=== PATIENT | female | born 1940 | race Caucasian/White ===

== ENCOUNTER 2024-05-06 23:44 | Observation (INO) | payer MEDICARE, OTHER, SELFPAY ==
[2024-05-06 21:14] VITALS: BP 160/59
[2024-05-06 21:17] VITALS: BP 160/59
[2024-05-06 21:30] LABS: % Basophils 0.8 % (0-2); % Immature Granulocytes 0.4 % (0-0.5); % Monocytes 7.5 % (1.7-9.3); % Neutrophils 72.3 % (42.2-75.2); Absolute Basophils 0.1 10^3/uL (0-0.2); Absolute Eosinophils 0.3 10^3/uL (0-0.7); Absolute Lymphocytes 1.1 10^3/uL (1.2-3.4); Absolute Monocytes 0.5 10^3/uL (0.1-0.6); Absolute Neutrophils 5.1 10^3/uL (1.4-6.5); Hematocrit 26.3 % (37.0-47.0); Hemoglobin 8.6 g/dL (12.0-16.0); Mean Corp Hgb Conc. 32.7 g/dL (33.0-37.0); Mean Corpuscular Hgb 31.7 pg (27.0-31.0); Mean Platelet Volume 9.6 fL (7.4-10.4); Nucleated Red Blood Cells % 0 %; Platelet Count 281 10^3/uL (130-400); Red Blood Cell Count 2.71 10^6/uL (4.20-5.40); Red Cell Dist. Width 13.6 % (11.5-14.5); White Blood Cell Count 7.1 10^3/uL (4.8-10.8)
[2024-05-06 21:32] LABS: Urine Albumin Negative (Neg - Trace); Urine Bilirubin Negative (Negative); Urine Character Slightly Cloudy (Clear); Urine Color Yellow; Urine Glucose Negative (Negative); Urine Ketone Negative (Negative); Urine Leukocyte 2+ (Negative); Urine Nitrite Positive (Negative); Urine Occult Blood Negative (Negative); Urine Specific Gravity 1.005 (<1.030); Urine Urobilinogen Negative (Neg - 1+)
[2024-05-06 21:49] LABS: ALT (SGPT) 20 U/L (0-35); AST (SGOT) 28 U/L (14-36); Albumin 3.5 g/dl (3.5-5.0); Alkaline Phosphatase 105 U/L (38-126); Blood Urea Nitrogen 22 mg/dl (7-17); Calcium 9.3 mg/dl (8.4-10.2); Carbon Dioxide 23 mmol/L (22-30); Chloride 100 mmol/L (98-107); Glucose 99 mg/dl (70-99); Potassium 3.9 mmol/L (3.5-5.1); Sodium 131 mmol/L (135-145); Total Bilirubin 0.6 mg/dl (0.2-1.3); Total Protein 5.7 g/dl (6.3-8.2); eGFR 50.48
[2024-05-06 21:54] LABS: Urine Bacteria Many (Negative); Urine White Cell 30-40 /HPF (0-5)
[2024-05-06 22:00] VITALS: BP 164/57
[2024-05-06] MEDS: ZOSYN 50 IV (22:24)
[2024-05-06 22:30] LABS: Iron 69 ug/dl (37-170)
--- NOTE | 2024-05-06 22:31 | ED.GENMED ---
History of Present Illness
General
Chief Complaint: Fatigue
Source: patient and family
Exam Limitations: none
Time Seen by Provider: 05/06/24 22:02
Nursing documentation reviewed up to this point in time: agreed with
History of Present Illness
History of Present Illness:
Patient presents to ED secondary to ongoing fatigue and weakness over the past 1 month, despite hospitalization at [facility], during which time she was treated for anemia as well as urinary tract infection. Denies fever or chills.
Denies nausea, vomiting, or diarrhea. Denies coughing. Patient reports decreased appetite and generalized weakness. Denies rash. Denies headache. Denies change in behavior, per family. Patient was told during the hospitalization that her
anemia needs further workup as an outpatient. In the meantime, iron supplement was recommended.
Past History
Past History
ED Past Medical History: None
ED Past Surgical History: None
Review of Systems
Review of Systems
Allergies reviewed?: Yes
All Other Systems: ROS reviewed and negative except as documented in HPI and ROS
Constitutional: Reports no symptoms; Denies fever or chills
Respiratory: Reports no symptoms; Denies cough
Cardiac: Reports no symptoms; Denies chest pain
ABD/GI: Reports no symptoms; Denies abdominal pain, vomiting or diarrhea
: Reports no symptoms
Musculoskeletal: Reports no symptoms
Skin: Reports no symptoms
Neurological: Reports weakness
Phy Exam
Physical Exam
Physical Exam:
Physical Exam
General: mild distress, not acutely ill. weak appearing. afebrile
Head: nc/at. eomi
Neck: supple. normal range of motion.
Heart: s1/s2 regular rate and rhythm, no murmur. equal radial pulses.
Lungs: no acute respiratory distress. clear bilaterally
Abdomen: normal bowel sounds. not tender.
Neuro: alert and oriented. no focal neurological deficits
Skin: no rash
Psychiatric: well kept. interactive and cooperative
Extremities: no edema. no calf tenderness.
Course
Orders/Labs/Results
Orders:
Orders
05/06/24 21:16
Complete Blood Count/With Diff Urgent
Comprehensive Metabolic Panel Urgent
Ferritin Urgent
Comment: ADD ON
Iron Urgent
Comment: ADD ON
Magnesium Urgent
Comment: ADD ON
TSH Reflex To Free T4 Urgent
Comment: ADD ON
Total Iron Binding Urgent
Comment: ADD ON
Urinalysis Reflex To Culture Urgent
Date Specimen was Collected: 05/06/24
Time Specimen was Collected: 21:15
Urine Microscopic Reflex Cult Urgent
Urine Culture Urgent
NIRU Source: U
Specimen Description:
Date Specimen was Collected: 05/06/24
Time Specimen was Collected: 21:15
05/06/24 22:14
Add On- LAB Urgent
Tests Added?: magnesium, TSH to reflex free T4, iron, TIBC, Ferritin
05/06/24 22:16
Piperacillin/Tazo 3.375 Gram [Zosyn] 3.375 gram in 50 ml IV NOW
05/06/24 22:24
Lactic Acid Q4H
Comment: CANCEL 2nd LACTIC ACID IF 1st LACTIC ACID IS LESS THAN 2
Blood Culture Q30M
NIRU Source: Blood/Venous
Specimen Description:
Blood Culture Q30M
NIRU Source: Blood/Venous
Specimen Description:
05/06/24 22:40
0.9% Sodium Chloride 500 ml [Nss] 500 ml IV BOLUS
05/06/24 23:25
Admit/Transfer Patient As Directed
Co-Sign Provider:
Level of Care: Observation services
Assign to:: Medical/Surgical
Physician / Group: hospitalist
Diagnosis: anemia
Code Status As Directed
Resuscitation Status: Full Code
PRN Pain Medication Management As Directed
May give lesser potent ordered pain med per pt: Yes
preference::
Protocol:: Medication orders for pain may be administered in a
manner that supports deferring to patient preference
when the pt is:
- Requesting an ordered lesser potent pain medication.
Least to most potent pain medications are defined
as: acetaminophen < NSAID < tramadol < opioids
(morphine, oxycodone, hydromorphone).
- Requesting a lesser dose of the same medication IF
ORDERED.
- Requesting a less intrusive route of administration
if both routes are prescribed by the provider (PO <
IV).
05/07/24 00:59
Acetaminophen [Tylenol] 650 mg PO Q4HPRN PRN
Bisacodyl [Dulcolax] 10 mg RECTAL [id number] PRN
Docusate W/Senna [Senokot-S] 1 tablet PO BIDPRN PRN
HydrALAZINE [Apresoline] 50 mg PO Q6H
Polyethylene Glycol Powder [Miralax] 17 grams PO DAILYPRN PRN
05/07/24 00:59
Consult Notification Routine
Specialty to Notify: Oncology
ONCOLOGY CONSULT Routine
Consulting Provider: Ricardo Green
Was physician already notified: No
Reason for consult: symptomatic anemia
Activity As Directed
Activity Level: With Assistance
Vital Signs As Directed
Frequency: Per unit guidelines
DX Deep Vein Thrombosis Video Routine
05/07/24 04:00
CeFAZolin 1 GRAM [Ancef] 1 gram in 5 ml IV Q8H
05/07/24 Breakfast
Regular
At Your Request: Full Participation
Basic Metabolic Panel IN AM
Complete Blood Count/No Diff IN AM
Folate IN AM
Haptoglobin [S] IN AM
LDH IN AM
Methemoglobin IN AM
Reticulocyte Count IN AM
Total Bilirubin IN AM
Vitamin B12 IN AM
Levothyroxine [Synthroid] 50 mcg PO DAILY @ 0600
05/07/24 08:00
Dapsone 25 mg PO DAILY
Irbesartan [Avapro] 300 mg PO DAILY
05/07/24 18:00
Enoxaparin Sodium [Lovenox] 40 mg SC QPM
Abnormal Lab Results
05/06/24 05/06/24
21:16 22:24
RBC 2.71 L 10^6/uL
(4.20-5.40)
Hgb 8.6 L g/dL
(12.0-16.0)
Hct 26.3 L %
(37.0-47.0)
MCH 31.7 H pg
(27.0-31.0)
MCHC 32.7 L g/dL
(33.0-37.0)
Absolute Lymphs (auto) 1.1 L 10^3/uL
(1.2-3.4)
Lymphocytes % 15.0 L %
(20.5-51.1)
Sodium 131 L mmol/L
(135-145)
BUN 22 H mg/dl
(7-17)
Creatinine 1.1 H mg/dL
(0.6-1.0)
Lactic Acid 0.5 L mmol/L
(0.7-2.0)
TIBC 239 L ug/dl
(265-497)
Total Protein 5.7 L g/dl
(6.3-8.2)
Urine Nitrite (Reflex) Positive A
(Negative)
Leukocyte Esterase Rfl 2+ A
(Negative)
Urine RBC 7-10 A /HPF
(0-2)
Urine WBC (Reflex) 30-40 A /HPF
(0-5)
Urine Bacteria (Reflex) Many A
(Negative)
05/06/24 21:16
05/06/24 21:16
Vital Signs
Initial and Last Documented VS:
Initial Vital Signs
Temp Pulse Resp BP
98.9 F 76 16 160/59
05/06/24 21:14 05/06/24 21:14 05/06/24 21:14 05/06/24 21:14
Last Documented Vital Signs
Temp Pulse Resp BP Pulse Ox
98.4 F 70 16 156/61 97
05/07/24 01:38 05/07/24 01:38 05/07/24 01:38 05/07/24 01:38 05/07/24 01:38
MDM/Problems Addressed
MDM/Problems Addressed:
History and exam, along with blood work and urinalysis, concerning for UTI, likely complicated versus incompletely treated, as she was recently admitted at another hospital. In addition, ongoing anemia noted, without any evidence of acute bleeding.
As such, patient will be admitted for IV antibiotics.
Urine culture and blood culture pending.
*Critical Care Note
Total Time (30-74mins, 75-104mins- exclusive of procedures): Not Applicable
ED Attending Note
-
Portions of this chart may have been created with voice recognition software.� Occasional wrong word or��sound alike� substitutions may have occurred due to the inherent limitations of voice recognition software.
Discharge Plan
Departure
Patient Disposition: Admit
Date of Disposition: 05/06/24
Time of Disposition: 22:40
Presentation/result/management discussed w/ accepting MD/DO: Hospitalist
Discharge Problem:
Acute UTI, Anemia
Interventions
Interventions:
*Risk Screen - Suicide Last Done: 05/06/24 21:14
*General Assessment Last Done: 05/06/24 21:14
*Neglect/Abuse Screening Last Done: 05/06/24 21:14
ED- Fall Risk Assessment Last Done: 05/07/24 00:55
*ED COVID-19 Vaccine History Last Done: 05/07/24 01:17
*Nursing Disposition Last Done: 05/07/24 00:55
Discharge Date and Time
Discharge Date/Time: 05/07/24 00:55
[2024-05-06 22:38] LABS: Percent Saturation 28 % (20-50); Total Iron Binding Capacity 239 ug/dl (265-497)
[2024-05-06] MEDS: NSS 500 IV (22:42)
[2024-05-06 22:48] LABS: Lactic Acid 0.5 mmol/L (0.7-2.0)
[2024-05-06 23:00] VITALS: BP 161/61
--- NOTE | 2024-05-06 23:10 | HPS.HSE ---
Family Physician
-
Family Physician: Damián Young
Chief Complaint
-
Fatigue
History of Present Illness
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
listlessness.
Patient reported that she had been feeling this way for several weeks now. She was seen at outside hospital about 3 weeks ago for the same symptoms. At the time she was diagnosed with urinary tract infection and was hospitalized for 3 days. After
3 days and completion of antibiotics patient denies any changes in her symptoms. She never had urinary symptoms including dysuria hematuria frequency incontinence or flank pain. She had no fevers or chills. Patient reported that she has been
anemic now for several weeks. It was first detected about 4 months ago. Last hemoglobin prior to today was 9 and before that it was normal. Patient denies having any melena or, denies hematochezia. She denies shortness of breath dyspnea on
exertion or exertional chest pain. She denies lightheadedness or dizziness. Patient reports sleeping well at night but still feeling tired and weak during the daytime. She denies any weight loss. She denies symptoms of depression.
She also has a history of resistant hypertension on previously on spironolactone that was discontinued due to hyponatremia and previously on beta-julio that was discontinued due to her anemia. She denies any history of jaundice.
In the emergency department she was hypertensive with a pressure of 164/60, pulse was 72 she was afebrile and satting at 4% on room air. UA was equivocal with positive nitrites and leukocyte esterase as well as bacteria with lots of squamous
cells. CBC notable for hemoglobin of 8.6 with elevated MCV but otherwise unremarkable. Electrolytes sodium of 131, and BUN/creatinine of 22 and 1.1 respectively. Iron panel shows a normal iron saturation and iron level. Ferritin is pending. TSH
was within normal limits.
Medical History
Past Medical History
Past Medical History: Reports HTN
Additional Past Medical History:
Hyperparathyroid status post hyperparathyroid ectomy
CKD
Past Surgical History: Reports Appendectomy
Additional Past Surgical History:
Breast lumpectomy
Parathyroidectomy
Partial hysterectomy
Social History
Tobacco: Non-smoker
Alcohol: None
Drug: None
Personal:
Living: With Family
Employment: Not Employed
Family History
Family History: Not pertinent
Allergies / Home Medications
Allergies reflects when Allergies were last updated in [employer].
Home Medications with original date entered in [employer]
Allergy/Medication List:
Allergies
Allergy/AdvReac Type Severity Reaction Status Date / Time
Beta-Blockers Allergy Unknown Verified 06/19/19 12:21
(Beta-Adrenergic Bloc
ciprofloxacin [From Cipro] Allergy Unknown Verified 06/19/19 12:21
fluconazole [From Diflucan] Allergy Unknown Verified 06/19/19 12:21
levofloxacin [From Levaquin] Allergy Unknown Verified 06/19/19 12:21
morphine Allergy Unknown Verified 06/19/19 12:21
ofloxacin [From Floxin] Allergy Unknown Verified 06/19/19 12:21
Home Medications
Dapsone 25 mg tablet, 25 mg p.o. daily
Hydralazine 50 mg tablet, 50 mg p.o. every 6 hours
Irbesartan 300 mg tablet, 20 mg p.o. daily
Levothyroxine 50 mcg tablet, 50 mcg p.o. daily
Review of Systems
-
History Source: Patient and Family
Constitutional: Reports Fatigue and Sleep Disturbance
EENT: Reports No Symptoms
Respiratory: Reports No Symptoms
Cardiac: Reports No Symptoms
Abdomen/GI: Reports No Symptoms
: Reports No Symptoms
Musculoskeletal: Reports No Symptoms
Skin: Reports No Symptoms
Neurological: Reports No Symptoms
Endocrine: Reports No Symptoms
Hematologic/Lymphatic: Reports No Symptoms
Psych: Reports No Symptoms
Physical Exam
Vital Signs
Vital Signs
Temp Pulse Resp BP Pulse Ox
98.9 F 77 20 164/57 94
05/06/24 21:14 05/06/24 22:30 05/06/24 21:17 05/06/24 22:00 05/06/24 22:00
Physical Exam
General: Well Developed, Well Nourished, No Apparent Distress and Comfortable
HEENT: NormoCephalic, Anicteric, Moist mucous membranes and Atraumatic
Respiratory: Clear
Cardiac: S1/S2 and Regular Rhythm
Breast: Deferred by me
GI: Soft, Non Tender, Non Distended and Normal Bowel Sounds
Rectal: Deferred by Provider
Genito-urinary: Deferred by me
Musculoskeletal: No Clubbing, No Cyanosis and No Edema
Skin: Warm
Neuro: AO x 3, No Motor Deficits, Cranial Nerves Intact and No Sensory Deficits
Hematologic/Lymphatic: No Lymphadenopathy
Psych: Calm
Laboratory Results
-
05/06/24 21:16
05/06/24 21:16
Laboratory Results
Lactic Acid 0.5 mmol/L (0.7-2.0) L 05/06/24 22:24
Total Bilirubin 0.6 mg/dl (0.2-1.3) 05/06/24 21:16
AST 28 U/L (14-36) 05/06/24 21:16
ALT 20 U/L (0-35) 05/06/24 21:16
Alkaline Phosphatase 105 U/L (38-126) 05/06/24 21:16
Data Reviewed
-
Lab Data: Labs Reviewed by me
Old Records: Reviewed
Impression/Plan
-
IMPRESSION:
83-year-old with history of hypertension,, hypothyroid presenting to the emergency department essentially with fatigue and listlessness as well as lethargy. This has been going on for several months and has been in the setting of decreasing blood
count. I think this is mostly secondary to her anemia. She is found to have a positive UA here in the ED which is similar to her presentation at outside hospital 3 weeks ago. She was treated for a urinary tract infection at that time and had no
improvement in symptoms. She had no urinary symptoms including dysuria hematuria flank pain fevers chills nausea or vomiting.
PLAN:
1.Anemia - Iron level and sat are normal, MCV is high, no evidence or history of recent blood loss. No evidence of hemolysis. I suspect drug related versus vitamin deficiency vs bone marrow suppression
- admit to med/surg obs
- check haptoglobin ldh and bilirubin (?G6PD on dapsone)
- check reticulocyte index
- peripheral smear
- b12 and folate levels
- check methemoglobinemia
- i suspect will need to stop the dapsone for her pemphigus (2nd to covid mrna vaccine)
- hematology consult
2. HTN - Poorly controlled
- continue irbesartan and hydralazine
- probably should be on nifedipine bid
- no diuretics due to h/o severe hyponatremia
3. UTI - unlikely etiology of symptom and u/a likely contaminated
- cultures pending
- down grade to [facility] for now and re-evaluate
PT evaluation
DVT PPX - lovenox sq
Code status - full code
[2024-05-06 23:47] LABS: TSH Reflex To Free T4 3.61 uIU/ml (0.47-4.68)
--- NOTE | 2024-05-07 01:30 | PTCARENOTE ---
pt admitted to 4E. AAOx3, pleasant. C/o lightheadedness and headache. Regular heart sounded. Dyspneic w/ exertion. 2L O2 clear lung sounds. GI and WNL. Call ramirez within reach.
[2024-05-07 01:38] VITALS: BP 156/61
[2024-05-07] MEDS: APRESOLINE PO ×2 (03:36→06:38)
[2024-05-07] MEDS: ANCEF 5 IV ×3 (04:02→20:27)
[2024-05-07] MEDS: TYLENOL 650 MG PO ×3 (04:02→16:06)
[2024-05-07] MEDS: SYNTHROID 50 MCG PO (04:03)
[2024-05-07 07:20] VITALS: BP 122/51
[2024-05-07] MEDS: AVAPRO 300 MG PO (08:09)
[2024-05-07 08:45] LABS: Methemoglobin 1.7 % (0.5-1.5)
[2024-05-07 08:46] LABS: Hematocrit 25.5 % (37.0-47.0); Hemoglobin 8.2 g/dL (12.0-16.0); Mean Corp Hgb Conc. 32.2 g/dL (33.0-37.0); Mean Corpuscular Hgb 31.5 pg (27.0-31.0); Mean Corpuscular Volume 98.1 fL (81.0-99.0); Mean Platelet Volume 9.5 fL (7.4-10.4); Platelet Count 252 10^3/uL (130-400); Red Cell Dist. Width 13.5 % (11.5-14.5); White Blood Cell Count 6.3 10^3/uL (4.8-10.8)
[2024-05-07 10:45] LABS: Blood Urea Nitrogen 18 mg/dl (7-17); Calcium 9.2 mg/dl (8.4-10.2); Carbon Dioxide 22 mmol/L (22-30); Chloride 102 mmol/L (98-107); Estimated Creatinine Clearance 31 ml/min; Glucose 83 mg/dl (70-99); Potassium 4.3 mmol/L (3.5-5.1); Sodium 133 mmol/L (135-145); Total Bilirubin 0.5 mg/dl (0.2-1.3); eGFR 45.48
[2024-05-07 10:47] LABS: LDH 164 U/L (120-246)
[2024-05-07 11:24] LABS: Folate 15.1 ng/ml (2.76-20); Vitamin B12 516 pg/ml (239-931)
--- NOTE | 2024-05-07 12:07 | CON.ONC ---
Impression
Impression
Normocytic anemia with normal RDW
Mild reticulocytosis
Hypertension
Pemphigus
Plan
Plan
B12 and folic acid in the normal range
No recent evidence of bleeding
Iron saturation in the normal range
Evaluate for low-grade hemolysis unlikely to determine G6PD abnormality on dapsone
Peripheral smear unremarkable
TSH in the normal
Haptoglobin and LDH pending
May require bone marrow biopsy if persistent
Doubt aplastic anemia with reticulocyte count of 4%
Patient History
History of Present Illness
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 She was
hospitalized 3 weeks ago at [facility] for urinary tract infection at which time she was noted to be anemic. She was noted to have a anemia on outpatient laboratory studies 4 months ago last hemoglobin prior to today was 9 g/dl and before that
it was normal. Patient denies having any melena or, denies hematochezia. She denies shortness of breath dyspnea on exertion or exertional chest pain. She denies lightheadedness or dizziness. Patient reports sleeping well at night but still
feeling tired and weak during the daytime. She denies any weight loss. She denies symptoms of depression.
Past-Medical/Surgical History
Past Medical History
Hypertension
Hyperparathyroid status post hyperparathyroid ectomy
CKD
Past Surgical History:
Appendectomy
Breast lumpectomy
Parathyroidectomy
Partial hysterectomy
Social History
Tobacco: Non-smoker
Alcohol: None
Drug: None
Personal:
Living: With Family
Employment: Not Employed
Family History
Family History: Not pertinent
Patient Medication
�Medication �Instructions �Recorded �Confirmed �Last Taken �Type
dapsone 25 mg tablet 25 mg PO HS PEMPHIGUS 05/07/24 05/07/24 05/06/24 History
hydralazine 50 mg tablet 50 mg PO QID Blood Pressure 05/07/24 05/07/24 05/06/24 History
irbesartan 300 mg tablet (Avapro) 300 mg PO DAILY Blood Pressure 05/07/24 05/07/24 05/06/24 History
levothyroxine 50 mcg tablet 50 mcg PO DAILY Thyroid 05/07/24 05/07/24 05/06/24 History
(Synthroid)
Active Medications
Generic Name Dose Route Start Last Admin
Trade Name Freq PRN Reason Stop Dose Admin
Acetaminophen 650 mg 05/07/24 00:59 05/07/24 11:29
Acetaminophen 325 Mg Tablet PO 06/04/24 00:58 650 mg
Q4HPRN PRN Administration
mild pain/GALO/temp> 100.4F
Bisacodyl 10 mg 05/07/24 00:59
Bisacodyl 10 Mg Rectal Suppository RECTAL 06/04/24 00:58
[id number] PRN
constipation
Dapsone 25 mg 05/07/24 22:00
Dapsone 25 Mg Tablet PO 06/04/24 21:59
HS BARBARA
Enoxaparin Sodium 40 mg 05/07/24 18:00
Enoxaparin Sodium 40 Mg/0.4 Ml Syringe SC 06/04/24 17:59
QPM BARBARA
Hydralazine HCl 50 mg 05/07/24 00:59 05/07/24 06:38
Hydralazine 50 Mg Tablet PO 06/04/24 00:58 Not Given
Q6H BARBARA
Cefazolin Sodium 1 gram in 5 mls @ 60 mls/hr 05/07/24 04:00 05/07/24 11:30
Ancef IV 5 mls
Q8H BARBARA Administration
Irbesartan 300 mg 05/07/24 08:00 05/07/24 08:09
Irbesartan 300 Mg Tablet PO 06/04/24 07:59 300 mg
DAILY BARBARA Administration
Levothyroxine Sodium 50 mcg 05/07/24 06:00 05/07/24 04:03
Levothyroxine 50 Mcg Tablet PO 06/04/24 05:59 50 mcg
DAILY @ 0600 BARBARA Administration
Polyethylene Glycol 17 grams 05/07/24 00:59
Polyethylene Glycol Powder 17 Grams Packet PO 06/04/24 00:58
DAILYPRN PRN
constipation
Senna/Docusate Sodium 1 tablet 05/07/24 00:59
Docusate W/Senna (Rosaline-Colace) Tablet PO 06/04/24 00:58
BIDPRN PRN
constipation
Review of Systems
-
Negative for 12 point review other than those noted in HPI
Physical Exam
-
Physical Exam
General: Well Developed, Well Nourished, No Apparent Distress and Comfortable
HEENT: NC, Anicteric, Moist mucous membranes and Atraumatic
Respiratory: Clear
Cardiac: S1/S2 and Regular Rhythm
GI: Soft, Non Tender, Non Distended and Normal Bowel Sounds
Musculoskeletal: No Clubbing, No Cyanosis and No Edema
Skin: Warm
Neuro: AO x 3, No Motor Deficits, Cranial Nerves Intact and No Sensory Deficits
Hematologic/Lymphatic: No Lymphadenopathy
Psych: Calm
Labs
Lab Results
WBC 6.3 10^3/uL (4.8-10.8) 05/07/24 08:33
RBC 2.60 10^6/uL (4.20-5.40) L 05/07/24 08:33
Hgb 8.2 g/dL (12.0-16.0) L 05/07/24 08:33
Hct 25.5 % (37.0-47.0) L 05/07/24 08:33
MCV 98.1 fL (81.0-99.0) 05/07/24 08:33
MCH 31.5 pg (27.0-31.0) H 05/07/24 08:33
MCHC 32.2 g/dL (33.0-37.0) L 05/07/24 08:33
RDW 13.5 % (11.5-14.5) 05/07/24 08:33
Plt Count 252 10^3/uL (130-400) 05/07/24 08:33
MPV 9.5 fL (7.4-10.4) 05/07/24 08:33
Abs Immat Gran (auto) 0.0 10^3/uL (0-0.05) 05/06/24 21:16
Absolute Neuts (auto) 5.1 10^3/uL (1.4-6.5) 05/06/24 21:16
Absolute Lymphs (auto) 1.1 10^3/uL (1.2-3.4) L 05/06/24 21:16
Absolute Monos (auto) 0.5 10^3/uL (0.1-0.6) 05/06/24 21:16
Absolute Eos (auto) 0.3 10^3/uL (0-0.7) 05/06/24 21:16
Absolute Basos (auto) 0.1 10^3/uL (0-0.2) 05/06/24 21:16
Immature Gran % 0.4 % (0-0.5) 05/06/24 21:16
Neutrophils % 72.3 % (42.2-75.2) 05/06/24 21:16
Lymphocytes % 15.0 % (20.5-51.1) L 05/06/24 21:16
Monocytes % 7.5 % (1.7-9.3) 05/06/24 21:16
Eosinophils % 4.0 % (0-6) 05/06/24 21:16
Basophils % 0.8 % (0-2) 05/06/24 21:16
Creatinine 1.2 mg/dL (0.6-1.0) H 05/07/24 08:33
Vital Signs
Vital Signs
Temp Pulse Resp BP Pulse Ox
98.4 F 66 18 122/51 95
05/07/24 07:20 05/07/24 08:09 05/07/24 07:20 05/07/24 08:09 05/07/24 07:20
--- NOTE | 2024-05-07 12:40 | W.PN.HOSP.TC ---
Today's Communication/Plan
-
Stop the dapsone
h/h daily
Send home once it is no longer dropping.
Assessment / Plan
Assessment / Plan
83-year-old woman comes in with fatigue and listlessness and lethargy. This has been going on for several months and in the setting of decreasing blood count. No urinary symptoms including dysuria hematuria flank pain fevers chills nausea or
vomiting.
PLAN:
1.Anemia - Iron level and sat are normal, MCV is high, no evidence or history of recent blood loss. No evidence of hemolysis.
Methemoglobin positive at 1.7. reticulocyte index 4.0
- peripheral smear
- b12 and folate levels
- Stop the dapsone for her pemphigus (2nd to covid mrna vaccine)
- hematology consult pending
OK to send home once H/H no longer dropping.
Transfuse if hemoglobin < 7.0
2. HTN - Poorly controlled - good control today
- continue irbesartan and hydralazine
- probably should be on nifedipine bid
- no diuretics due to h/o severe hyponatremia
3. UTI - unlikely etiology of symptom and u/a likely contaminated
- cultures pending
- downgraded to [facility] and will re-evaluate once culture results are ready
PT evaluation
DVT PPX - lovenox sq
Code status - full code
Anticipated Discharge: 24 - 48 hours
Subjective/Interval History
-
Date of Service: May 07, 2024
Symptoms unchanged. No new issues.
Objective Data
-
Labs:
Laboratory Results
05/07/24
08:33
WBC 6.3
Hgb 8.2 L
Hct 25.5 L
Plt Count 252
Sodium 133 L
Potassium 4.3
Chloride 102
Carbon Dioxide 22
BUN 18 H
Creatinine 1.2 H
Glucose 83
Calcium 9.2
Total Bilirubin 0.5
Vital Signs:
Vital Signs
Temp Pulse Resp BP Pulse Ox
98.4 F 66 18 122/51 95
05/07/24 07:20 05/07/24 08:09 05/07/24 07:20 05/07/24 08:09 05/07/24 07:20
I&O
05/06/24 05/07/24 05/08/24
06:59 06:59 06:59
Intake Total 240 / 240 240 / 240
Balance 240 / 240 240 / 240
Review of Systems
-
History Source: Patient
All other systems: Reviewed and negative
Constitutional: Reports Fatigue and Weakness
Physical Exam
-
General: Well Developed, Well Nourished, No Apparent Distress, Comfortable and Obese
HEENT: Normocephalic, Moist Mucous Membranes, Nose Appears Normal and Ears Appear Normal
Respiratory: Clear to Auscultation
Cardiac: Regular Rhythm and S1/S2
GI: Soft, Nontender and Nondistended
Musculoskeletal: No Clubbing, No Cyanosis and No Edema
Skin: Warm and Dry
Neuro: Awake, Alert, Oriented and AO x 3
Psych: Calm
Data Reviewed
-
Labs: Labs Reviewed by me
[2024-05-07] MEDS: APRESOLINE 50 MG PO ×2 (13:03→18:16)
[2024-05-07 15:17] VITALS: BP 127/57
--- NOTE | 2024-05-07 15:19 | CM ---
Addendum entered by Karla Herrera 05/07/24 15:46:
Eliana from [facility] called back.Eliana shared that CB has no record of picking patient up. In the chart, patient's address is on [address]. Apparently, according to Eliana, also called in asking for blue, long coat. He
shared that he and his live on [address]. Eliana stated that if they live on [address], CB does not go out that far. KENTRELL verbalized understanding. Eliana stated that she'd reach back out to .
Above shared with KENTRELL Palencia for patient.
Original Note:
KENTRELL Palencia shared that patient's said patient's long, blue coat is missing. As Slime was asking staff about the coat, another RN went into the dirty linen cart of room ER-33 and did not see the coat.
This CM called [facility]. The mobile equipment operator answering the phone said she could find no record of patient and will need to talk to her lieutenant and will CM back.
Awaiting call back. KENTRELL Palencia made aware of above.
[2024-05-07] MEDS: SENOKOT-S 1 TABLET PO (16:22)
[2024-05-07] MEDS: LOVENOX 40 MG SC (18:15)
[2024-05-07 23:41] VITALS: BP 140/53
[2024-05-08] MEDS: APRESOLINE 50 MG PO ×4 (00:11→18:07)
[2024-05-08] MEDS: ANCEF 5 IV ×3 (04:56→21:44)
[2024-05-08] MEDS: SYNTHROID 50 MCG PO (05:50)
--- NOTE | 2024-05-08 07:06 | W.PN.ONC2 ---
Today's Communication / Plan
-
Suspect stable for discharge. Feeling better. Awaiting today's CBC.
So far w/u unremarkable. Possible dapsone related anemia. Dapsone stopped.
Monitor CBC weekly x 4 weeks off of dapsone.
Outpt heme consult for further evaluation and possible BMBx if HgB does not improve.
Retic count 4% suggests blunted but still decent marrow response - not aplsatic.
Impression
Impression
Normocytic anemia with normal RDW
Mild reticulocytosis
Hypertension
Pemphigus
Plan
Plan
B12 and folic acid in the normal range
No recent evidence of bleeding
Iron saturation in the normal range
Peripheral smear unremarkable
TSH in the normal
Haptoglobin pending but normal bili and LDH makes hemolysis unlikely.
May require bone marrow biopsy if persistent
Doubt aplastic anemia with reticulocyte count of 4%
Subjective/Objective
Chief Complaint
Hame F/U
Subjective
Feeling better this am.
Vital Signs:
Vital Signs
Temp Pulse Resp BP Pulse Ox
98.6 F 67 16 140/52 96
05/07/24 23:41 05/08/24 05:54 05/07/24 23:41 05/08/24 05:54 05/07/24 23:41
Lab Results:
Laboratory Data
WBC 6.3 10^3/uL (4.8-10.8) 05/07/24 08:33
Hgb 8.2 g/dL (12.0-16.0) L 05/07/24 08:33
Plt Count 252 10^3/uL (130-400) 05/07/24 08:33
eGFR 45.48 05/07/24 08:33
Laboratory Tests
05/06/24 05/07/24
21:16 08:33
Creatinine 1.2 H
Estimated Creat Clear 31
Iron 69
TIBC 239 L
% Saturation 28
Ferritin 104.0
Total Bilirubin 0.5
Lactate Dehydrogenase 164
Vitamin B12 516
Folate 15.1
Physical Exam
Cardiology: S1 and S2
Pulmonary: Clear
GI: Soft
[2024-05-08 07:25] VITALS: BP 137/55
[2024-05-08 08:44] LABS: % Basophils 0.8 % (0-2); % Eosinophils 3.5 % (0-6); % Immature Granulocytes 0.5 % (0-0.5); % Lymphocytes 14.9 % (20.5-51.1); % Monocytes 7.2 % (1.7-9.3); % Neutrophils 73.1 % (42.2-75.2); Absolute Basophils 0.1 10^3/uL (0-0.2); Absolute Eosinophils 0.2 10^3/uL (0-0.7); Absolute Lymphocytes 0.9 10^3/uL (1.2-3.4); Absolute Monocytes 0.4 10^3/uL (0.1-0.6); Absolute Neutrophils 4.4 10^3/uL (1.4-6.5); Hematocrit 26.3 % (37.0-47.0); Hemoglobin 8.4 g/dL (12.0-16.0); Mean Corp Hgb Conc. 31.9 g/dL (33.0-37.0); Mean Corpuscular Hgb 31.9 pg (27.0-31.0); Mean Platelet Volume 10.1 fL (7.4-10.4); Nucleated Red Blood Cells % 0 %; Platelet Count 239 10^3/uL (130-400); Red Blood Cell Count 2.63 10^6/uL (4.20-5.40); Red Cell Dist. Width 13.6 % (11.5-14.5)
[2024-05-08 09:01] LABS: Blood Urea Nitrogen 20 mg/dl (7-17); Carbon Dioxide 23 mmol/L (22-30); Chloride 102 mmol/L (98-107); Estimated Creatinine Clearance 37 ml/min; Glucose 83 mg/dl (70-99); Potassium 3.8 mmol/L (3.5-5.1); Sodium 132 mmol/L (135-145)
[2024-05-08 09:01] LABS: Haptoglobin 16 mg/dL (30-200)
[2024-05-08] MEDS: AVAPRO 300 MG PO (09:56)
[2024-05-08 14:02] VITALS: BP 134/52
--- NOTE | 2024-05-08 15:07 | W.PN.HOSP.TC ---
Today's Communication/Plan
-
ready to be d/c tomorrow once final culture results are ready.
Assessment / Plan
Assessment / Plan
83-year-old woman comes in with fatigue and listlessness and lethargy. This has been going on for several months and in the setting of decreasing blood count. No urinary symptoms including dysuria hematuria flank pain fevers chills nausea or
vomiting.
PLAN:
1.Anemia - Iron level and sat are normal, MCV is high, no evidence or history of recent blood loss. No evidence of hemolysis.
Methemoglobin positive at 1.7. reticulocyte index 4.0
Dapsone was likely cause of the anemia
Stop the dapsone
outpatient f/u with heme
2. HTN - good control today
- continue irbesartan and hydralazine
- outpatient review of her bp meds
3. UTI - unlikely primary etiology of symptom, but culture grew out >100k of gram neg.
- final cultures pending
- downgraded to anceph
- re-evaluate once culture results are ready and d/c home with appropriate outpt abx based on biogram
DVT PPX - lovenox sq
Code status - full code
ready for dc tomorrow on appropriate po abx
Anticipated Discharge: Within 24 hours
Subjective/Interval History
-
Date of Service: May 08, 2024
Feels well. No new issues.
Objective Data
-
Labs:
Laboratory Results
05/08/24
07:52
WBC 6.0
Hgb 8.4 L
Hct 26.3 L
Plt Count 239
Sodium 132 L
Potassium 3.8
Chloride 102
Carbon Dioxide 23
BUN 20 H
Creatinine 1.0
Glucose 83
Calcium 9.0
Vital Signs:
Vital Signs
Temp Pulse Resp BP Pulse Ox
98.8 F 76 18 134/52 95
05/08/24 07:25 05/08/24 14:05 05/08/24 07:25 05/08/24 14:05 05/08/24 07:25
I&O
05/07/24 05/08/24 05/09/24
06:59 06:59 06:59
Intake Total 240 / 240 2160 / 2160 300 / 300
Balance 240 / 240 2160 / 2160 300 / 300
Review of Systems
-
All other systems: Reviewed and negative
Physical Exam
-
General: Well Developed, Well Nourished, No Apparent Distress, Comfortable and Conversant
HEENT: Normocephalic, Atraumatic, Moist Mucous Membranes, Nose Appears Normal and Ears Appear Normal
Respiratory: Clear to Auscultation
Cardiac: Regular Rhythm and S1/S2
GI: Soft, Nontender and Nondistended
Musculoskeletal: No Clubbing, No Cyanosis and No Edema
Skin: Warm and Dry
Neuro: Awake, Alert, Oriented and AO x 3
Psych: Calm
Data Reviewed
-
Labs: Labs Reviewed by me
[2024-05-08 18:06] VITALS: BP 142/58
[2024-05-08] MEDS: LOVENOX SC (18:06)
[2024-05-08 23:53] VITALS: BP 147/56
[2024-05-09] MEDS: APRESOLINE 50 MG PO ×2 (00:31→12:46)
[2024-05-09] MEDS: ANCEF 5 IV (05:12)
[2024-05-09] MEDS: SYNTHROID 50 MCG PO (05:12)
[2024-05-09 08:48] VITALS: BP 133/49
[2024-05-09] MEDS: APRESOLINE PO (10:46)
[2024-05-09 10:47] VITALS: BP 146/55
[2024-05-09] MEDS: AVAPRO 300 MG PO (10:47)
--- NOTE | 2024-05-09 11:15 | W.PN.HOSP.TC ---
Addendum entered and electronically signed by Julia Noguera MD 05/09/24 14:28:
total DC time 37 min
Original Note:
Today's Communication/Plan
-
see A/P
Assessment / Plan
Assessment / Plan
83-year-old woman comes in with fatigue, listlessness and lethargy. This has been going on for several months and in the setting of decreasing blood count. No urinary symptoms including dysuria/hematuria/flank pain, fevers/chills, nausea or
vomiting.
A/P:
# Generalized weakness 2/2 Anemia
Hgb around 8 this admission
Iron panel acceptable
B12 acceptable at 500
no evidence or history of recent blood loss. No evidence of hemolysis.
Methemoglobin positive at 1.7%. reticulocyte index 4.0
Dapsone was likely cause of the anemia. Stopped dapsone
outpatient f/u with heme
# Essential HTN
continue irbesartan and hydralazine
outpatient follow up with PCP
# UTI
unlikely primary etiology of symptom,
Urine culture with E coli, sensitivity reviewed
She has received Ancef for 3 days, can cont Keflex for 2 more days
DVT PPX - lovenox sq
Code status - full code
Dispo: Home. Pt states that she can ambulate alright without assistance
DW and daughter at bedside
Anticipated Discharge: Today
Subjective/Interval History
-
Date of Service: May 09, 2024
Objective Data
-
Vital Signs:
Vital Signs
Temp Pulse Resp BP Pulse Ox
36.9 C 73 18 146/55 97
05/09/24 08:48 05/09/24 10:47 05/09/24 08:48 05/09/24 10:47 05/09/24 08:48
I&O
05/08/24 05/09/2424
06:59 06:59 06:59
Intake Total 2159 / 2159 960 / 960
Balance 0 / 2159 960 / 960
Review of Systems
-
All other systems: Reviewed and negative
Physical Exam
-
General: Well Developed, Well Nourished, No Apparent Distress, Comfortable and Conversant
HEENT: Normocephalic, Atraumatic, Moist Mucous Membranes, Nose Appears Normal and Ears Appear Normal
Respiratory: Clear to Auscultation and Non Labored Respirations; Negative Accessory Resp Muscle Use
Cardiac: Regular Rhythm and S1/S2
GI: Soft, Nontender and Nondistended
Musculoskeletal: No Clubbing, No Cyanosis and No Edema
Skin: Warm and Dry
Neuro: Awake, Alert, Oriented and AO x 3
Psych: Calm and Intact Judgement/Insight
Data Reviewed
-
Labs: Labs Reviewed by me
--- NOTE | 2024-05-09 12:26 | CM ---
CM following re: discharge planning.
Reviewed pt's chart, met with pt. Pt's spouse and daughter at bedside.
Pt is an 83 year old female, admitted with OBS status and primary dx of Generalized weakness 2/2 Anemia. OBS status reviewed with the pt and her family, WANG letter signed, placed on chart, pt has a copy.
Pt reports she lives with 2SH, 1 step to enter, has supportive daughter. Pt described herself as independent in all areas [employer]. No DME, VN or SNF history.
PCP: Damián Young
Ph[facility]acy: [facility]
Discharge order noted. Both pt and her family are aware. No IMM needed, pt is OBS. No after care VN services identified.
D/C plan: home with family, no needs. to transport.
[2024-05-09 12:43] VITALS: BP 164/80
[2024-05-09 12:46] VITALS: BP 146/70
[2024-05-09] MEDS: ANCEF IV (13:13)
--- NOTE | 2024-05-09 14:19 | W.DCSUMMARY ---
Discharge Summary
Discharge Data
Date of Admission: 05/06/24
Date of Discharge: 05/09/24
-
Pending Results: No
Hospital Course
Principal Diagnosis:
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
Possible UTI
Chronic Diagnoses:�
Essential hypertension, on irbesartan and hydralazine
Consultations:�
Hematology
Procedures:�
None
Clinical course:�
This is a 83-year-old woman with past medical history as stated above, who presented with lethargy.
Problem 1:
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
Her Hgb has been around at 8 this admission.
Her iron panel was reviewed and is acceptable.
Her B12 level within normal limit at 500.
Her Methemoglobin was positive at 1.7%, reticulocyte index 4.0.
This was felt likely due to dapsone related anemia hence dapsone was stopped per hematology.
The patient can continue to follow-up with hematology outpatient.
Problem 2:
Possible UTI.
Her urine culture grew with E coli, sensitivity reviewed.
She received Ancef for 3 days while in the hospital, and she can continue with Keflex for 2 more days following discharge.
As for the rest of her medical problems, they were stable during her hospital stay.
Discharge Plan
-
Patient Disposition: Home (Routine Discharge)
Discharge Diagnosis/Procedures: weakness with chronic anemia
Condition: Good
Diet: As tolerated
Activity: As tolerated
Driving Restrictions: As prior to admission
Blood Work: CBC with your technical trainer
Referrals:
Damián Young MD [Family Provider] - in less than 1 week
Additional Discharge Medication Instructions: Stop Dapsone
Continue Keflex for 2 more days
Prescriptions:
New
cephalexin 500 mg capsule
500 mg PO Q12H 2 Days Qty: 4 0RF
Continued
hydralazine 50 mg Tablet
50 mg PO QID
levothyroxine [Synthroid] 50 mcg Tablet
50 mcg PO DAILY
irbesartan [Avapro] 300 mg Tablet
300 mg PO DAILY
Discontinued
dapsone 25 mg Tablet
25 mg PO HS
Discharge Orders:
Discharge Patient (As Directed); Ordered 05/09/24
Ordered By: Julia Noguera
Discharge Date and Time
Print Language: JAPANESE
== END 2024-05-09 15:13 | disposition home or self-care (01) ==
LOC: 4 EAST ACU 23:44
PROVIDERS: Internal Medicine; Student in an Organized Health Care Education/Training Program; ADMITTING PHYSICIAN Internal Medicine; ATTENDING PHYSICIAN Internal Medicine; EMERGENCY PHYSICIAN Emergency Medicine; FAMILY PHYSICIAN Internal Medicine; OTHER PHYSICIAN Internal Medicine Hematology & Oncology
DX: D64.9 Anemia, unspecified (principal); N39.0 Urinary tract infection, site not specified; R53.83 Other fatigue; R53.1 Weakness; L10.9 Pemphigus, unspecified; R79.89 Other specified abnormal findings of blood chemistry; I12.9 Hypertensive chronic kidney disease with stage 1 through stage 4 chronic kidney disease, or unspecified chronic kidney disease; N18.9 Chronic kidney disease, unspecified; E03.9 Hypothyroidism, unspecified; I1A.0 Resistant hypertension; E21.3 Hyperparathyroidism, unspecified; Z88.1 Allergy status to other antibiotic agents; Z88.3 Allergy status to other anti-infective agents; Z88.8 Allergy status to other drugs, medicaments and biological substances; Z79.890 Hormone replacement therapy; Z87.440 Personal history of urinary (tract) infections; Z90.49 Acquired absence of other specified parts of digestive tract
CPT/HCPCS: 80048; 80053; 81003; 81015; 82247; 82607; 82728; 82746; 83010; 83050; 83540; 83550; 83605; 83615; 83735; 84443; 85025; 85027; 85045; 87040; 87077; 87086; 87186; 96365; 99285; G0378